=== PATIENT | female | born 1940 | race African-American/Black ===

== ENCOUNTER 2021-03-25 00:11 | Observation (INO) | payer MEDICARE, MEDICAID ==
[2021-03-25 02:31] LABS: #Basophils 0.1 thou/uL (0.0-0.2); #Lymphocytes 1.8 thou/uL (1.20-3.40); #Neutrophils 12.2 thou/uL (1.40-6.50); %Basophils 0.7 % (0.0-1.0); %Eosinophils 0.1 % (0.0-10.0); %Lymphocytes 10.9 % (21.0-51.0); %Monocytes 12.5 % (0.0-10.0); %Neutrophils 75.8 % (42.0-75.0); ALT (SGPT) 12 U/L (8-55); AST (SGOT) 11 U/L (5-34); Albumin 3.8 g/dL (3.4-4.8); Alkaline Phosphatase 67 U/L (40-110); Anion Gap 14 mmol/L (10-20); BUN (Urea Nitrogen) 20 mg/dL (9.8-20.1); Bilirubin, Total 0.4 mg/dL (0.2-1.2); Calc. Creatinine Clearance 0 mL/min (70-130); Calcium 9.3 mg/dL (7.8-10.44); Carbon Dioxide 24 mmol/L (23-31); Chloride 103 mmol/L (98-107); Globulin 3.3 g/dL (2.4-3.5); Glucose 114 mg/dL (83-110); Hemoglobin 12.2 g/dL (12.0-16.0); Mean Corpuscular HGB CONC 33.8 g/dL (32.0-36.0); Mean Corpuscular Hemoglobin 32.2 pg (27.0-31.0); Mean Corpuscular Volume 95.2 fL (78.0-98.0); Mean Platelet Volume 7.7 fL (7.4-10.4); Platelet Count 319 thou/uL (130-400); Potassium 4.1 mmol/L (3.5-5.1); Protein, Total 7.1 g/dL (5.8-8.1); RBC Distribution Width 13.2 % (11.5-14.5); Red Blood Cell (RBC) Count 3.79 mill/uL (4.20-5.40); Sodium 137 mmol/L (136-145); White Blood Cell (WBC) Count 16.1 thou/uL (4.8-10.8)
[2021-03-25] MEDS ORDERED: Sodium Chloride 0.9% 1,000 ML IV SCH ×2 (03:15→14:45)
[2021-03-25 05:03] LABS: Lactic Acid 2.2 mmol/L (0.5-2.2)
[2021-03-25 11:26] VITALS: BMI 29.7
[2021-03-25] MEDS ORDERED: Vancomycin 1 GM in Premix Bag 1 BAG IVPB SCH (14:15)
[2021-03-25] MEDS ORDERED: Ondansetron PF 4 MG/2 ML Vial IVP PRN (14:37)
[2021-03-25] MEDS: VANCOMYCIN 1.25 GM/250 ML BAG 1.25 GM in Premix Bag 1 BAG IVPB SCH (15:39)
[2021-03-25] MEDS ORDERED: Artificial Tear Sol 15 ML BOT EA EYE PRN (17:46)
[2021-03-25] MEDS ORDERED: Dextrose 5% in Water 1,000 ML IV PRN (17:48)
[2021-03-25] MEDS ORDERED: Dextrose 50% Abboject 50 ML SYRINGE SLOW IVP PRN (17:48)
[2021-03-25] MEDS ORDERED: HumaLOG 300 UNITS/3 ML VIAL SC PRN (17:48)
[2021-03-25] MEDS ORDERED: metFORMIN 500 MG TAB PO SCH (18:15)
[2021-03-25] MEDS: Cefepime 2 GM in Sodium Chloride 0.9% 100 ML IVPB SCH (18:16)
[2021-03-25] MEDS: Latanoprost 0.005% Ophth Soln 2.5 ml Bottle EA EYE SCH ×2 (19:57→20:01)
[2021-03-25] MEDS: DULoxetine 30 MG CAP PO SCH ×2 (19:57→20:01)
[2021-03-25] MEDS: Atorvastatin Calcium 10 MG TAB PO SCH ×2 (19:57→20:01)
[2021-03-26] MEDS: Cefepime 2 GM in Sodium Chloride 0.9% 100 ML IVPB SCH ×2 (04:23→16:38)
[2021-03-26 06:20] LABS: #Basophils 0.1 thou/uL (0.0-0.2); #Eosinphils 0.2 thou/uL (0.0-0.7); #Lymphocytes 1.4 thou/uL (1.20-3.40); #Neutrophils 9.7 thou/uL (1.40-6.50); %Basophils 0.6 % (0.0-1.0); %Eosinophils 1.8 % (0.0-10.0); %Lymphocytes 11.5 % (21.0-51.0); %Neutrophils 78.2 % (42.0-75.0); Hemoglobin 11.9 g/dL (12.0-16.0); Mean Corpuscular Hemoglobin 31.1 pg (27.0-31.0); Mean Corpuscular Volume 94.1 fL (78.0-98.0); Mean Platelet Volume 7.8 fL (7.4-10.4); Platelet Count 325 thou/uL (130-400); RBC Distribution Width 13.2 % (11.5-14.5); Red Blood Cell (RBC) Count 3.81 mill/uL (4.20-5.40); White Blood Cell (WBC) Count 12.4 thou/uL (4.8-10.8)
[2021-03-26 06:57] LABS: Anion Gap 14 mmol/L (10-20); BUN (Urea Nitrogen) 15 mg/dL (9.8-20.1); Calc. Creatinine Clearance 50 mL/min (70-130); Calcium 9.8 mg/dL (7.8-10.44); Carbon Dioxide 25 mmol/L (23-31); Chloride 106 mmol/L (98-107); Glucose 98 mg/dL (83-110); Potassium 3.6 mmol/L (3.5-5.1); Sodium 141 mmol/L (136-145)
[2021-03-26] MEDS: DULoxetine 30 MG CAP PO SCH ×2 (08:29→20:57)
[2021-03-26] MEDS: Aspirin 81 mg Enteric Coated Tablet PO SCH (08:29)
[2021-03-26] MEDS: Amlodipine 5 MG TAB PO SCH (08:29)
[2021-03-26] MEDS: metFORMIN 500 MG TAB PO SCH ×2 (08:29→16:43)
[2021-03-26] MEDS: Anastrozole 1 MG TAB PO SCH (08:29)
[2021-03-26] MEDS: Furosemide 20 MG TAB PO SCH ×2 (08:30→14:26)
[2021-03-26] MEDS: Enoxaparin Sodium 40 MG/0.4 ML SYRINGE SC SCH (08:30)
[2021-03-26] MEDS: VANCOMYCIN 1.25 GM/250 ML BAG 1.25 GM in Premix Bag 1 BAG IVPB SCH (14:21)
[2021-03-26] MEDS: Atorvastatin Calcium 10 MG TAB PO SCH (20:57)
[2021-03-26] MEDS: Latanoprost 0.005% Ophth Soln 2.5 ml Bottle EA EYE SCH (20:57)
[2021-03-27] MEDS: Cefepime 2 GM in Sodium Chloride 0.9% 100 ML IVPB SCH ×2 (05:33→18:20)
[2021-03-27 07:09] LABS: #Basophils 0.1 thou/uL (0.0-0.2); #Eosinphils 0.2 thou/uL (0.0-0.7); #Lymphocytes 1.5 thou/uL (1.20-3.40); #Monocytes 0.9 thou/uL (0.11-0.59); #Neutrophils 8.2 thou/uL (1.40-6.50); %Eosinophils 2.1 % (0.0-10.0); %Lymphocytes 13.6 % (21.0-51.0); %Monocytes 8.5 % (0.0-10.0); %Neutrophils 74.7 % (42.0-75.0); Hemoglobin 11.6 g/dL (12.0-16.0); Mean Corpuscular HGB CONC 32.2 g/dL (32.0-36.0); Mean Corpuscular Hemoglobin 30.2 pg (27.0-31.0); Mean Corpuscular Volume 93.7 fL (78.0-98.0); Mean Platelet Volume 7.6 fL (7.4-10.4); Platelet Count 328 thou/uL (130-400); RBC Distribution Width 13.1 % (11.5-14.5); Red Blood Cell (RBC) Count 3.83 mill/uL (4.20-5.40)
[2021-03-27 07:34] LABS: Anion Gap 15 mmol/L (10-20); BUN (Urea Nitrogen) 14 mg/dL (9.8-20.1); Calc. Creatinine Clearance 57 mL/min (70-130); Calcium 9.2 mg/dL (7.8-10.44); Carbon Dioxide 21 mmol/L (23-31); Chloride 106 mmol/L (98-107); Glucose 106 mg/dL (83-110); Potassium 3.4 mmol/L (3.5-5.1); Sodium 139 mmol/L (136-145)
[2021-03-27] MEDS: Amlodipine 5 MG TAB PO SCH (09:10)
[2021-03-27] MEDS: Anastrozole 1 MG TAB PO SCH (09:10)
[2021-03-27] MEDS: DULoxetine 30 MG CAP PO SCH ×2 (09:10→21:02)
[2021-03-27] MEDS: Aspirin 81 mg Enteric Coated Tablet PO SCH (09:10)
[2021-03-27] MEDS: metFORMIN 500 MG TAB PO SCH ×2 (09:10→17:21)
[2021-03-27] MEDS: Furosemide 20 MG TAB PO SCH ×2 (09:10→15:11)
[2021-03-27] MEDS: Enoxaparin Sodium 40 MG/0.4 ML SYRINGE SC SCH (09:11)
[2021-03-27 14:34] LABS: Vancomycin, Trough 15.4 ug/mL
[2021-03-27] MEDS: VANCOMYCIN 1.25 GM/250 ML BAG 1.25 GM in Premix Bag 1 BAG IVPB SCH (15:11)
[2021-03-27] MEDS: Latanoprost 0.005% Ophth Soln 2.5 ml Bottle EA EYE SCH (21:01)
[2021-03-27] MEDS: Atorvastatin Calcium 10 MG TAB PO SCH (21:02)
[2021-03-28] MEDS: Cefepime 2 GM in Sodium Chloride 0.9% 100 ML IVPB SCH (05:30)
[2021-03-28] MEDS: Enoxaparin Sodium 40 MG/0.4 ML SYRINGE SC SCH ×2 (08:24→08:35)
[2021-03-28] MEDS: DULoxetine 30 MG CAP PO SCH (08:24)
[2021-03-28] MEDS: Amlodipine 5 MG TAB PO SCH (08:25)
[2021-03-28] MEDS: Furosemide 20 MG TAB PO SCH (08:25)
[2021-03-28] MEDS: metFORMIN 500 MG TAB PO SCH (08:25)
[2021-03-28] MEDS: Anastrozole 1 MG TAB PO SCH (08:27)
[2021-03-28] MEDS: Aspirin 81 mg Enteric Coated Tablet PO SCH (08:27)
[2021-03-28 08:47] VITALS: BP 163/82; TEMP 97.9
== END 2021-03-28 12:43 ==
LOC: ERS 00:11 → T4-A 01:37
PROVIDERS: ADMIT Internal Medicine; ATTEND Family Medicine
DX: G93.41 Metabolic encephalopathy (principal); A41.9 Sepsis, unspecified organism; E11.9 Type 2 diabetes mellitus without complications; I69.354 Hemiplegia and hemiparesis following cerebral infarction affecting left non-dominant side; I11.0 Hypertensive heart disease with heart failure; I50.9 Heart failure, unspecified; E78.5 Hyperlipidemia, unspecified; M19.90 Unspecified osteoarthritis, unspecified site; F01.50 Vascular dementia, unspecified severity, without behavioral disturbance, psychotic disturbance, mood disturbance, and anxiety; I65.23 Occlusion and stenosis of bilateral carotid arteries; I67.2 Cerebral atherosclerosis; Z66 Do not resuscitate; Z85.3 Personal history of malignant neoplasm of breast; Z86.16 Personal history of COVID-19; Z86.718 Personal history of other venous thrombosis and embolism; Z79.811 Long term (current) use of aromatase inhibitors; Z79.82 Long term (current) use of aspirin; Z79.84 Long term (current) use of oral hypoglycemic drugs; Z79.899 Other long term (current) drug therapy; Z88.2 Allergy status to sulfonamides
CPT/HCPCS: 36415; 36416; 80048; 80053; 80202; 83605; 85025; 96372; 96374; 96375; 96376; 99285; G0378; J0692; J1650; J3370; J3490; J7050

== ENCOUNTER 2022-02-13 09:50 | Observation (INO) | payer MEDICARE, MEDICAID ==
[2022-02-13 13:18] VITALS: BMI 29.7
[2022-02-13] MEDS ORDERED: FLU VACC QS2022-23(65YR UP)/PF 240 MCG/0.7 ML SYRINGE IM ONE (14:00)
[2022-02-13 14:43] LABS: SARS-CoV-2 NAA Rapid Test Not Detected (NotDetected)
[2022-02-13] MEDS ORDERED: Bisacodyl 10 MG SUPP PR PRN ×2 (15:10→23:05)
[2022-02-13] MEDS ORDERED: Acetaminophen 325 MG TAB PO PRN ×2 (15:13→23:08)
[2022-02-13] MEDS ORDERED: Acetaminophen 650 MG Suppository PR PRN ×2 (15:13→23:08)
[2022-02-13] MEDS ORDERED: Ondansetron ODT 4 MG TAB PO PRN ×2 (15:13→23:08)
[2022-02-13] MEDS ORDERED: Ondansetron PF 4 MG/2 ML Vial IVP PRN ×2 (15:13→23:08)
[2022-02-13] MEDS ORDERED: Sodium Chloride 0.9% 1,000 ML IV SCH (15:15)
[2022-02-13] MEDS ORDERED: Dextrose 50% Abboject 50 ML SYRINGE SLOW IVP PRN ×2 (17:04→23:09)
[2022-02-13] MEDS ORDERED: HumaLOG 300 UNITS/3 ML VIAL SC PRN ×4 (17:04→23:09)
[2022-02-13] MEDS ORDERED: Dextrose 5% in Water 1,000 ML IV PRN ×2 (17:04→23:09)
[2022-02-13] MEDS ORDERED: Magnesium 2 GM/50 ML(in water) 2 GM in Premix Bag 1 BAG IVPB SCH (18:30)
[2022-02-13] MEDS ORDERED: Docusate 100 MG CAP PO SCH (21:00)
[2022-02-13 21:27] LABS: Lactic Acid 1.6 mmol/L (0.5-2.2)
[2022-02-14 06:38] LABS: #Eosinphils 0.3 thou/uL (0.0-0.7); #Lymphocytes 2.2 thou/uL (1.20-3.40); #Monocytes 1.4 thou/uL (0.11-0.59); #Neutrophils 9.1 thou/uL (1.40-6.50); %Basophils 0.3 % (0.0-1.0); %Lymphocytes 17.2 % (21.0-51.0); %Monocytes 10.4 % (0.0-10.0); %Neutrophils 70.1 % (42.0-75.0); Hemoglobin 12.4 g/dL (12.0-16.0); Mean Corpuscular HGB CONC 31.3 g/dL (32.0-36.0); Mean Corpuscular Hemoglobin 29.8 pg (27.0-31.0); Mean Corpuscular Volume 95.2 fl (78.0-98.0); Mean Platelet Volume 8.5 fL (7.4-10.4); Platelet Count 329 thou/uL (130-400); RBC Distribution Width 12.9 % (11.5-14.5); Red Blood Cell (RBC) Count 4.16 mill/uL (4.20-5.40)
[2022-02-14 07:37] LABS: Anion Gap 14 mmol/L (10-20); BUN (Urea Nitrogen) 11 mg/dL (9.8-20.1); Calc. Creatinine Clearance 49 mL/min (70-130); Calcium 9.6 mg/dL (7.8-10.44); Carbon Dioxide 24 mmol/L (23-31); Chloride 104 mmol/L (98-107); Estimated GFR 52; Glucose 94 mg/dL (83-110); Potassium 4.5 mmol/L (3.5-5.1); Sodium 137 mmol/L (136-145)
[2022-02-14] MEDS ORDERED: Enoxaparin Sodium 40 MG/0.4 ML SYRINGE SC SCH (09:00)
[2022-02-14] MEDS ORDERED: Polyethylene Glycol 3350 17 GM Packet PO SCH (09:00)
[2022-02-14] MEDS ORDERED: DULoxetine 30 MG CAP PO SCH (09:00)
[2022-02-14] MEDS: Amlodipine 5 MG TAB PO SCH (09:08)
[2022-02-14] MEDS: Aspirin 81 mg Enteric Coated Tablet PO SCH ×2 (09:09→09:19)
[2022-02-14] MEDS: Enoxaparin Sodium 40 MG/0.4 ML SYRINGE SC SCH (09:10)
[2022-02-14] MEDS: DULoxetine 30 MG CAP PO SCH (09:10)
[2022-02-14] MEDS: Docusate 100 MG CAP PO SCH ×2 (09:10→20:35)
[2022-02-14] MEDS: Polyethylene Glycol 3350 17 GM Packet PO SCH (09:11)
[2022-02-14] MEDS ORDERED: Atorvastatin Calcium 10 MG TAB PO SCH (21:00)
[2022-02-15] MEDS: Enoxaparin Sodium 40 MG/0.4 ML SYRINGE SC SCH ×2 (10:36→10:59)
[2022-02-15] MEDS: DULoxetine 30 MG CAP PO SCH (10:36)
[2022-02-15] MEDS: Amlodipine 5 MG TAB PO SCH (10:36)
[2022-02-15] MEDS: Docusate 100 MG CAP PO SCH (10:36)
[2022-02-15] MEDS: Aspirin 81 mg Enteric Coated Tablet PO SCH (10:36)
[2022-02-15] MEDS: Polyethylene Glycol 3350 17 GM Packet PO SCH (10:37)
[2022-02-15 12:03] VITALS: BP 140/84; TEMP 98.8
[2022-02-15 13:02] LABS: Bacteria/HPF 1+ HPF (None Seen); Bilirubin Negative (Negative); Blood, Urine Negative (Negative); Clarity Clear (Clear); Glucose, Urine (Dipstick) Normal (Negative); Ketone, Urine Negative (Negative); Leukocyte 75 Leu/uL (Negative); Nitrite Negative (Negative); Protein, Urine (Dipstick) Negative (Neg-Trace); RBC/HPF 0-3 HPF (0-3); Specific Gravity, Urine 1.007 (1.002-1.036); Squamous Epithelial 0-3 HPF (0-3); Urobilinogen Normal mg/dL (Less than 2)
[2022-02-15 13:03] LABS: Urine Culture Reflex Yes Yes
== END 2022-02-15 19:39 ==
LOC: MSONC 12:36 → UNDODISOB 17:35
PROVIDERS: ADMIT Internal Medicine; ATTEND Internal Medicine
DX: K56.41 Fecal impaction (principal); E11.10 Type 2 diabetes mellitus with ketoacidosis without coma; I11.0 Hypertensive heart disease with heart failure; I50.9 Heart failure, unspecified; E78.5 Hyperlipidemia, unspecified; I69.354 Hemiplegia and hemiparesis following cerebral infarction affecting left non-dominant side; I69.391 Dysphagia following cerebral infarction; R13.10 Dysphagia, unspecified; F03.90 Unspecified dementia, unspecified severity, without behavioral disturbance, psychotic disturbance, mood disturbance, and anxiety; N17.9 Acute kidney failure, unspecified; N39.0 Urinary tract infection, site not specified; Z85.3 Personal history of malignant neoplasm of breast; Z86.16 Personal history of COVID-19; Z86.718 Personal history of other venous thrombosis and embolism; Z79.82 Long term (current) use of aspirin; Z79.84 Long term (current) use of oral hypoglycemic drugs; Z79.899 Other long term (current) drug therapy; Z88.1 Allergy status to other antibiotic agents; Z88.2 Allergy status to sulfonamides; Z20.822 Contact with and (suspected) exposure to COVID-19; I69.322 Dysarthria following cerebral infarction
CPT/HCPCS: 80048; 81001; 82962 ×3; 83605; 85025; 87077; 87086; 87186; 96361; 96372; 96374; 97110; 97530 ×3; G0378 ×3; U0002; 36415; 36416; J1650; J3475; J7050

== ENCOUNTER 2023-10-16 09:36 | Outpatient (CLI) | payer MEDICARE, MEDICAID | END 2023-10-16 09:37 | disposition home or self-care (01) | LOC: BICMAMMO 09:36 | PROVIDERS: ATTEND Nurse Practitioner Primary Care | DX: N63.24 Unspecified lump in the left breast, lower inner quadrant (principal) | CPT/HCPCS: 76642; 77065; G0279 ==